=== PATIENT | male | born 1955 | race Caucasian/White ===

== ENCOUNTER → 2020-11-12 12:29 | Outpatient (CLI) | payer MEDICARE, SELFPAY ==
--- NOTE | ~2020-11-12 | CT_ITS ---
EXAMINATION: CT lung screening DATE: 11/12/2020 12:59 INDICATION: tobacco dependence TECHNIQUE: Computed tomography (CT) of the chest was performed without intravenous contrast. Addition al 3D reconstructions utilizing coronal maximum intensity projection (MIP) were performed. Automated exposure control and iterative reconstruction technique were employed. The dose-length product was 85 .52 mGy-cm. COMPARISON: None FINDINGS: Mild emphysema. A few tiny flat triangular intrafissural lymph node along the bilateral major fissure measuring up to 2 mm in maximal thickness. No other suspicious pulmonary nodules. Linear band of dis coid atelectasis/scarring in the right lower lobe. No pneumonia, pulmonary edema, pleural effusion or pneumothorax. Heart size is normal. No pericardial effusion. Atherosclerotic coronary artery calcifi cation is. Thoracic aorta is normal in caliber. No pathologically enlarged thoracic lymphadenopathy. Visualized upper abdomen is unremarkable. Mild lumbar spondylosis with minimal anterior wedging at T1 1 and T12. IMPRESSION: 1. Lung-RADS category 2: Benign appearance or behavior. Continue annual screening with noncontrast lo w-dose chest CT in 12 months. Reviewed, dictated and finalized at location B. [employer] IMPRESSION: 1. Lung-RADS category 2: Benign appearance or behavior. Continue annual screeni ng with noncontrast low-dose chest CT in 12 months.
== END ==
PROVIDERS: PCP Family Medicine; Visit Provider Family Medicine
DX: Z12.2 Encounter for screening for malignant neoplasm of respiratory organs (principal); Z87.891 Personal history of nicotine dependence
CPT/HCPCS: 71271

== ENCOUNTER 2020-11-19 00:20 | Outpatient (CLI) | payer MEDICARE, SELFPAY ==
[2020-11-19 17:34] LABS: SARS-CoV-2 RNA PCR Negative
== END 2020-11-19 00:21 | disposition home or self-care (01) ==
LOC: ANHCOVIDDT 00:20
PROVIDERS: PCP Family Medicine; Visit Provider Internal Medicine Gastroenterology
DX: Z01.812 Encounter for preprocedural laboratory examination (principal); Z20.822 Contact with and (suspected) exposure to COVID-19
CPT/HCPCS: C9803; U0003; U0005

== ENCOUNTER 2020-11-22 00:43 | Day surgery (SDC) | payer MEDICARE, SELFPAY ==
[2020-11-15 12:03] VITALS: BMI 23.1
[2020-11-22 06:50] VITALS: BP 119/71; PULSE 90; RESP 20; TEMP 36.8; O2SAT 99; BMI 22.5
[2020-11-22] MEDS: LACTATED RINGERS 1,000 ML 150 ML IV CONT (06:57)
--- NOTE | 2020-11-22 07:30 | WPDANESEPPF ---
Anes - Initial Pre Proc Eval Procedure: Operation Date: 11/22/20 08:00 Proposed Procedures p Colonoscopy - Sukh Stiles MD Date/Time: 11/22/20 07:30 Surgeon: Sukh Stiles MD Pre Op Diagnosis: Positive Cologuard Patient Data Age: 65 Gender: M Height: 5 ft 11 in Weight: 73.2 kg Last Vital Signs Temp 98.3 F 11/22/20 06:50 Pulse 90 11/22/20 06:50 Resp 20 11/22/20 06:50 BP 119/71 11/22/20 06:50 Pulse Ox 99 11/22/20 06:50 Allergies Allergy/AdvReac Type Severity Reaction Status Date / Time No Known Allergies Allergy Verified 11/22/20 06:49 Home Medications Medication Instructions Recorded Confirmed Type amlodipine 5 mg tablet 5 mg PO DAILY #90 tablet 07/06/20 11/15/20 Rx lisinopril 30 mg tablet 30 mg PO DAILY #90 tablet 07/06/20 11/15/20 Rx tamsulosin 0.4 mg capsule 0.4 mg PO DAILY #30 cap 07/30/20 11/15/20 Rx pravastatin 40 mg tablet See Rx Instructions .ROUTE 08/28/20 11/15/20 Rx .COMPLEX #90 tablet sodium,potassium,mag sulfates See Rx Instructions .ROUTE 11/15/20 Rx [Suprep Bowel Prep Kit] .COMPLEX #1 ml Patient hx anesthesia problems: none Family hx anesthesia problems: none PMFSH Past Medical History Medical History (Updated 11/22/20 @ 07:25 by Justin Nicole MD) Difficulty urinating Essential hypertension Hyperlipidemia Umbilical hernia Wellness examination Family History Family History Mother Family history of coronary artery disease Social History Social History (Updated 11/06/20 @ 09:31 by Erika Mullins) Smoking packs per day: 0.5 Smoking cigarettes per day: 10.0 Years smoked: 40 Smoking pack-years: 20.00 Smoking status: Current every day smoker Tobacco type: cigarettes Alcohol intake: current Drinks per week: 12 Substance use: never Substance use type: does not use Living arrangements: with family Gender identity (if verbalized by the patient): Male Spiritual care concerns: No Anes - Eval Final PreProcedure Day of Procedure 11/22/20 07:30 Patient weight: normal Heart: regular rate and rhythm Lungs: clear to auscultation Airway: Mallampati scale class II Neurological: alert and oriented Last oral intake: >/= 8 hours ASA classification: III Emergent: no Anesthetic plan: proceed Anesthesia type and monitoring: general GIVS and standard monitoring Informed Consent: The patient's anesthetic plan and its attendant risks and benefits were discussed with the patient/family/POA. Questions were solicited and answers provided to the satisfaction of the patient/family/POA.
--- NOTE | 2020-11-22 07:43 | WPDGICN ---
Assessment and Plan Assessment and plan (1) Encounter for screening colonoscopy: Code(s): Z12.11 - Encounter for screening for malignant neoplasm of colon Status: Acute Assessment and Plan: patient presents for screening colonoscopy. Appears to be at average risk for colon polyps. Further recommendations will be given after endoscopy. GI Consult Note Consult date/time: 11/22/20 07:43 HPI: Yamil Carrillo is a 65 year old male presents for screening colonoscopy. Patient states that his current weight appetite bowel movements are normal. Patient denies abdominal pain. He has been in general good health. Currently on no medications. No allergies. Family history is noncontributory. Review of Systems Review of Systems: All systems reviewed & are unremarkable except as noted in HPI and below PMFSH Past Medical History Medical History (Updated 11/22/20 @ 07:44 by Sukh Stiles MD) Difficulty urinating Essential hypertension Hyperlipidemia Umbilical hernia Wellness examination Family History Family History Mother Family history of coronary artery disease Social History Social History (Updated 11/06/20 @ 09:31 by Erika Mullins) Smoking packs per day: 0.5 Smoking cigarettes per day: 10.0 Years smoked: 40 Smoking pack-years: 20.00 Smoking status: Current every day smoker Tobacco type: cigarettes Alcohol intake: current Drinks per week: 12 Substance use: never Substance use type: does not use Living arrangements: with family Gender identity (if verbalized by the patient): Male Spiritual care concerns: No Meds Home Medications and Allergies Home Medications Medication Instructions Recorded Confirmed Type amlodipine 5 mg tablet 5 mg PO DAILY #90 tablet 07/06/20 11/15/20 Rx lisinopril 30 mg tablet 30 mg PO DAILY #90 tablet 07/06/20 11/15/20 Rx tamsulosin 0.4 mg capsule 0.4 mg PO DAILY #30 cap 07/30/20 11/15/20 Rx pravastatin 40 mg tablet See Rx Instructions .ROUTE 08/28/20 11/15/20 Rx .COMPLEX #90 tablet sodium,potassium,mag sulfates See Rx Instructions .ROUTE 11/15/20 Rx [Suprep Bowel Prep Kit] .COMPLEX #1 ml Allergies Allergy/AdvReac Type Severity Reaction Status Date / Time No Known Allergies Allergy Verified 11/22/20 06:49 Vital Signs Vital Signs - 24 hr 11/22/20 06:50 Temperature 98.3 F Pulse Rate 90 Respiratory Rate 20 Blood Pressure 119/71 Pulse Oximetry 99 Exam Narrative: Exam Narrative: Physical exam reveals Vital Signs to be stable. HEENT exam unremarkable. Lungs are clear to auscultation and percussion. Heart is without murmur or extra sounds. Abdominal exam bowel sounds are present soft nontender with no organomegaly. Digital external rectal exam is normal per
[2020-11-22 08:07] VITALS: BP 87/57; PULSE 89; RESP 20; O2SAT 97
[2020-11-22 08:17] VITALS: BP 104/65; PULSE 71; RESP 18; O2SAT 96
[2020-11-22 08:27] VITALS: BP 107/73; PULSE 69; RESP 18; O2SAT 97
== END 2020-11-22 08:40 | disposition home or self-care (01) ==
PROVIDERS: PCP Family Medicine; Visit Provider Internal Medicine Gastroenterology
PROC: 0DJD8ZZ Inspection of Lower Intestinal Tract, Via Natural or Artificial Opening Endoscopic (ICD-10-PCS; CPT 45378; principal; 2020-11-22 08:00)
DX: Z12.11 Encounter for screening for malignant neoplasm of colon (principal); D12.5 Benign neoplasm of sigmoid colon; D12.8 Benign neoplasm of rectum; K42.9 Umbilical hernia without obstruction or gangrene; K64.8 Other hemorrhoids; R19.5 Other fecal abnormalities; I10 Essential (primary) hypertension; E78.5 Hyperlipidemia, unspecified; F17.210 Nicotine dependence, cigarettes, uncomplicated
CPT/HCPCS: 45385; 88305; C9803; J2704; J7120; U0003; U0005

== ENCOUNTER → 2022-11-12 09:50 | Outpatient (CLI) | payer MEDICARE, SELFPAY ==
--- NOTE | ~2022-11-12 | XR_ITS ---
Lumbosacral Spine: AP and lateral views Clinical History: Pain Findings: The normal lordotic curve is maintained. No fracture or subluxation identified. There is mi ld degenerative change at L1-L2 and L2-L3. There is facet joint degenerative change from L3 through S 1. The sacroiliac joints are normally outlined. Impression: Mild degenerative spondylosis, as detailed above. No fracture or subluxation. Reviewed, dictated and finalized at location . GENCY ROOM CLERK Impression: Mild degenerative spondylosis, as detailed above. No fracture or subluxation.
== END ==
PROVIDERS: PCP Family Medicine; Visit Provider Family Medicine
DX: M54.30 Sciatica, unspecified side (principal); M47.896 Other spondylosis, lumbar region
CPT/HCPCS: 72100

== ENCOUNTER 2022-11-20 07:51 | Outpatient (CLI) | payer MEDICARE, SELFPAY ==
--- NOTE | ~2022-11-20 | US_ITS ---
Ultrasound of the Abdominal Aorta INDICATION: Cardiovascular disorder, abdominal aortic aneurysm TECHNIQUE: Grayscale, color Doppler, and pulsed Doppler images of the aorta and common iliac arteries were obtained. COMPARISON: None. FINDINGS: Maximum vascular dimensions are as follows: Proximal aorta: 2.4 cm Mid aorta: 2.0 cm Distal aorta: 1.5 cm Right common iliac artery: 0.7 cm Left common iliac artery: 1.1 cm There is no evidence of abdominal aortic aneurysm. There is probable atherosclerotic change at the ao rtic bifurcation region and common iliac arteries. IMPRESSION: No evidence of abdominal aortic aneurysm. Probable atherosclerotic calcification of the aortic bifurcation region and common iliac arteries. Reviewed, dictated and finalized at location M. [employer] IMPRESSION: No evidence of abdominal aortic aneurysm. Probable atherosclerotic calcification of the aortic bifurcation region and com mon iliac arteries.
--- NOTE | ~2022-11-20 | CT_ITS ---
CT Scan of the Chest without Contrast: Clinical Indication: Lung cancer screening, current smoker Technique: Contiguous sections were acquired throughout the chest without intravenous contrast. Dose reduction technique was used on this scan by utilizing automated exposure control and iterative recon struction technique. The dose-length product (DLP) was 107.42 mGy-cm. COMPARISON: 11/12/2020 Findings: There is no evidence of any significant mediastinal, hilar or axillary lymphadenopathy. Mild coronary artery calcifications are present. No aortic aneurysm. There is no evidence of pleural or pericardial effusion. The lungs are clear. No pulmonary nodules or infiltrates are noted. Images through the upper abdomen reveal no abnormalities. Impression: Lung-RADS 1: Negative. Twelve-month follow-up screening CT recommended. Reviewed, dictated and finalized at [facility]. ST[employer] M[employer]ER Impression: Lung-RADS 1: Negative. Twelve-month follow-up screening CT recommended.
== END 2022-11-20 07:52 | disposition home or self-care (01) ==
PROVIDERS: PCP Family Medicine; Visit Provider Family Medicine
DX: Z12.2 Encounter for screening for malignant neoplasm of respiratory organs (principal); F17.210 Nicotine dependence, cigarettes, uncomplicated
CPT/HCPCS: 71271; 76706

== ENCOUNTER 2023-11-25 14:09 | Outpatient (CLI) | payer MEDICARE, SELFPAY ==
--- NOTE | ~2023-11-25 | CT_ITS ---
EXAMINATION:CT lung screening DATE: 11/25/2023 14:25 INDICATION: Nicotine dependence, cigarettes, uncomplicated. Current smoker with 80 pack year history. TECHNIQUE: Computed tomography (CT) of the chest was performed without intravenous contrast. Automate d exposure control and iterative reconstruction technique were employed. The dose-length product (DLP ) was 109.38 mGy-cm. COMPARISON: Chest CT 11/20/2022 FINDINGS: There is mild emphysema. There is mild atelectasis bilaterally. A calcified left lung nodul e is consistent with old granulomatous disease. No pleural effusion. The heart size is normal. There are coronary artery calcifications. No pericardial effusion. Aortic atherosclerosis is noted. There i s mild thoracic spondylosis. There is severe cervical and lumbar spondylosis. IMPRESSION: 1. Lung-RADS category 1: Negative. Continue annual screening with noncontrast low-dose chest CT in 12 months. Reviewed, dictated and finalized at location E. SERVICES PROFESSIONAL IMPRESSION: 1. Lung-RADS category 1: Negative. Continue annual screening with noncontrast l ow-dose chest CT in 12 months.
== END 2023-11-25 14:10 | disposition home or self-care (01) ==
PROVIDERS: PCP Family Medicine; Visit Provider Family Medicine
DX: F17.210 Nicotine dependence, cigarettes, uncomplicated (principal)
CPT/HCPCS: 71271

== ENCOUNTER 2024-12-15 07:52 | Outpatient (CLI) | payer MEDICARE, SELFPAY | END 2024-12-15 07:53 | disposition home or self-care (01) | PROVIDERS: PCP Family Medicine; Visit Provider Family Medicine | DX: Z12.2 Encounter for screening for malignant neoplasm of respiratory organs (principal); F17.210 Nicotine dependence, cigarettes, uncomplicated | CPT/HCPCS: 71271 ==